=== PATIENT | male | born 1975 | race Two or more races ===

== ENCOUNTER 2025-07-25 16:33 | Inpatient (IN) | payer MEDICARE, MEDICAID ==
[~2025-07-25] VITALS: Ht 185.4 cm; Wt 149.0 kg
--- NOTE | 2025-07-25 16:52 | ELECTROCARDIOGRAPH REPORT ---
[facility] Test Date: 2025-07-25 Test Time: 16:37:17 Pat Name: ALVINA BANERJEE Department: EMERGENCY ROOM Room: [place] [address] Gender: M Operations [place]: YOMI : 1975 Requested By: HANH RODRIGUEZ Order Number: [id number] Reading MD: Dr. Stalin Askew Measurements Intervals [place] Rate: 100 P: 22 DC: 154 QRS: 27 QRSD: 93 T: -64 QT: 343 QTc: 443 Interpretive Statements Sinus tachycardia Probable left atrial enlargement Left ventricular hypertrophy Probable inferior infarct, age indeterminate Electronically Signed On 07-31-2025 0:22:[address] Stalin Askew Please click the below link to view image of tracing.
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
[2025-07-25 17:14] LABS: CREATININE 1.47 MG/DL (0.60-1.10); MEAN PLATELET VOLUME 10.6 FL (7.4-10.4); RED CELL DISTRIBUTION WIDTH 14.6 % (11.5-14.5); TOTAL CARBON DIOXIDE 32.1 MMOL/L (24-32); eCRCL 70 ML/MIN; eGFR 51 ML/MIN
--- NOTE | 2025-07-25 17:14 | RADIOLOGY REPORT ---
CT CT STROKE ALERT INDICATION: Stroke Alert EXAM DATE: 07/25/2025 04:46 PM COMPARISON: None TECHNIQUE: CT of the head without intravenous contrast. RADIATION DOSE: CTDIvol: 66 mGy, DLP: 1204 mGy*cm FINDINGS: There is no intracranial hemorrhage. There is no extra-axial fluid, mass, mass effect or midline shift. The ventricles are midline and normal in size. Basilar cisterns are patent. Mild periventricular and subcortical white matter chronic microvascular ischemic changes. There is decreased attenuation /loss of rojas- white differentiation within left parietal cortical region. Old left fajardo radiata infarct. Old infarcts of the kristen. The paranasal sinuses and mastoids are well-pneumatized. Imaged portion of the orbits are unremarkable. IMPRESSION: Decreased attenuation /loss of rojas-white differentiation in the left parietal lobe could represent acute cerebrovascular ischemia. Recommend MRI brain to evaluate. No intracranial hemorrhage or mass effect. Mild chronic microvascular ischemic changes. Critical Result: Stroke Alert Findings discussed with Daniela Bergeron, at 07/25/2025 05:10 PM, and acknowledged receipt and understanding of the findings. ..
--- NOTE | 2025-07-25 17:17 | RADIOLOGY REPORT ---
CT CTA NECK/HEAD INDICATION: Stroke Alert TECHNIQUE: CT angiography along with MIP and MPR images were obtained of the [place] arteries. CT angiography along with MIP and MPR images were obtained of the cervical carotid and vertebral arteries. All CT scans at this facility use dose modulation, iterative reconstruction, and/or weight based dosing when appropriate to reduce radiation dose to as low as reasonably achievable. 3-D postprocessing was performed on a separate workstation under radiologist supervision. IV CONTRAST: 100 mL of low osmolar intravenous iodinated contrast material was administered. COMPARISON: None FINDINGS: ANTERIOR CIRCULATION: Distal internal carotid arteries including the petrous, cavernous, and supraclinoid segments are patent bilaterally. Possible infundibulum versus fusiform aneurysm versus small saccular aneurysm measuring 2-3 mm in the right supraclinoid carotid artery. Anterior cerebral arteries including the A1 and A2 segments are patent bilaterally. Anterior communicating artery patent without aneurysm formation. Middle cerebral arteries including the horizontal M1 and sylvian M2 are patent bilaterally. POSTERIOR CIRCULATION: Posterior cerebral arteries are patent bilaterally. Vertebral arteries are codominant The intracranial segments of the vertebral arteries are patent bilaterally. 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 The posterior inferior cerebellar arteries are patent bilaterally. CERVICAL VESSELS: The thoracic aortic arch is patent without evidence of aneurysmal dilatation or dissection. The right common carotid artery, carotid bulb, and cervical segment of the right internal carotid artery are patent The left common carotid artery, carotid bulb, and cervical segment of the left internal carotid artery are patent The cervical segments of the vertebral arteries are patent Small amount of calcified plaque at bilateral proximal internal carotid arteries. OTHER: The lung apices are clear. Multiple dental cavities. IMPRESSION: 1. No large vessel occlusion. 2. 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 3. Right supraclinoid ICA infundibulum versus fusiform aneurysm versus small saccular aneurysm measuring 2-3 mm.
[2025-07-25 17:19] LABS: APTT 27 SECONDS (22-32); INR 1.0 INR
[2025-07-25] MEDS ORDERED: NO HOME MEDS (17:48)
--- NOTE | 2025-07-25 17:57 | [facility] CONSULT REPORT ---
[facility] Procedure Note [facility] Procedure Note Consult [facility] Note # Demographics Consult Type: Acute Stroke Level 2 (4.5-24 hrs) Patient Location: Emergency Room First Name: ALVINA Last Name: CHRISS Date of : 1975 Age: 49 Gender: Male Facility: [facility] Time of Initial Page (): 07/25/2025 17:12 First Contact with Site (): 07/25/2025 17:12 # HPI Chief Complaint: - vision changes History: 49yom with HTN who p/w L eye visual loss x 2 days. His R eye is fine. 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 Last Known Normal: - I have collected independent history specific to time last normal or last known well. We have collaborated with the provider and at this time, we have the most current timeline with the information that is available. 2 days ago # Scores Time of exam and NIHSS (): 07/25/2025 17:50 Level of Consciousness 1a: [0] = Alert; keenly responsive LOC Questions 1b: [0] = Answers both questions correctly LOC Commands 1c: [0] = Performs both tasks correctly Best Gaze 2: [0] = Normal Visual 3: [0] = No visual loss Facial Palsy 4: [0] = Normal symmetrical movements Motor Arm Left 5a: [0] = No drift Motor Arm Right 5b: [0] = No drift Motor Leg Left 6a: [0] = No drift Motor Leg Right 6b: [0] = No drift Limb Ataxia 7: [0] = Absent Sensory 8: [1] = Qjup-[id number] sensory loss Best Language 9: [0] = No aphasia Dysarthria 10: [0] = Normal Extinction and Inattention 11: [0] = No abnormality NIHSS Total: 1 # Data Head CT: - no bleed - per radiologist read L parietal stroke CTA Head: - no large vessel occlusion - per radiologist read # Assessment Impression: - Ischemic Stroke (Acute) # Plan Thrombolytic/Intervention: NOT IV Thrombolysis or IA Intervention candidate Thrombolytic Exclusion: > 4.5 hours Intraarterial Exclusion: - clinical exam not consistent with presence of large vessel occlusion (LVO), can reconsider if LVO found on vascular imaging Blood Pressure Management: Use labetolol 10-20mg IV PRN or nicardipine gtt to maintain BP parameters Target Blood Pressure: - SBP < 220 - DBP < 120 Imaging: (urgency: STAT): - CT Angiogram Head and CT Angiogram Neck AND call back with results if abnormal Imaging: (urgency: routine): - MRI Brain without contrast Diagnostic Test: - echo with bubble study Telemetry for a fib monitoring Therapy/Evaluation: - PT/OT evaluation - speech/swallow consultation - NPO until swallow evaluation Medication: - aspirin 81 mg PO daily atorvastatin 80mg daily, goal LDL <70 Other: - If patient has any neurological deterioration please call me back immediately Additional Recommendations: - Avoid dehydration and relative hypotension - Risk factor modification, including smoking cessation and alcohol moderation if appropriate - NSGY followup for aneurysms on CTA - Monitor glucose and correct as needed - If cryptogenic non-lacunar stroke on MRI, obtain outpatient cardiac monitoring for a fib - Call back for neurological deterioration Disposition: admit # Logistics Attestation of consult completion: The patient is located at: [facility]. Facility staff participated in the visit. I performed this telemedicine visit from my offsite office utilizing interactive 2 way audio and visual telecommunication technology at the request of the onsite emergency room provider. Total time spent in telemedicine encounter: I spent 23 minutes reviewing clinical data and/or imaging, obtaining history, examining the patient, communicating with the onsite care team, and in preparation of this report. # Demographics First Name: ALVINA Last Name: CHRISS Facility: [facility] Neuro Consult Order placed for: Yes PENELOPE MARTINEZ MD Jul 25, 2025 17:57
[2025-07-25] MEDS: niCARDipine-NS 40mg/200ml IVPB 200 ML IV SCH (18:05)
--- NOTE | 2025-07-25 18:39 | RADIOLOGY REPORT ---
EXAM: DI CHEST,SINGLE VIEW HISTORY: Stroke Alert TECHNIQUE: 1 view of the chest COMPARISON: None FINDINGS/IMPRESSION: LUNGS: Low lung volumes, which cause crowding of the bronchovascular markings. Central pulmonary vascular congestion. Correlate for volume overload MEDIASTINUM: Mild cardiomegaly BONES: No acute osseous abnormality. OTHER: None.
[2025-07-25 19:05] LABS: CREATININE 1.37 MG/DL (0.60-1.10); TOTAL CARBON DIOXIDE 29.9 MMOL/L (24-32); eCRCL 75 ML/MIN; eGFR 56 ML/MIN
[2025-07-25] MEDS ORDERED: potassium Cl 40MEQ/1/2NS 520ml 520 ML IV PRN (19:55)
[2025-07-25] MEDS ORDERED: magnesium sulf-water 4G/100mL 100 ML IV PRN (19:55)
[2025-07-25] MEDS ORDERED: magnesium hydroxide 30ml (MOM) UD suspension PO PRN (19:55)
[2025-07-25] MEDS ORDERED: magnesium sulf-water 2g/50mL 50 ML IV PRN (19:55)
[2025-07-25] MEDS ORDERED: ondansetron/PF 4mg/2ml inj IV PRN (19:55)
[2025-07-25] MEDS ORDERED: magnesium Cl slow-release 64mg tablet PO PRN (19:55)
[2025-07-25] MEDS ORDERED: mag hydrox/Alum hydrox/simeth 30ml oral suspension PO PRN (19:55)
[2025-07-25] MEDS ORDERED: potassium Cl 20 mEq SR tablet PO PRN (19:55)
[2025-07-25] MEDS: K and/or MAG REPLACEMENT MC SCH (20:00)
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
[2025-07-25 21:01] LABS: PHOSPHORUS 2.9 MG/DL (2.3-4.5); PRO BRAIN NATRIURETIC PEPTIDE 305 PG/ML (0-125)
[2025-07-25] MEDS: PERFLUTREN PROTEIN-A MICROSPHR (Optison) 0.22 MG/ML 3ML VIAL IV ONE (21:04)
[2025-07-25] MEDS: heparin, porcine 5000 units/ml vial SQ SCH (21:08)
[2025-07-25] MEDS: docusate sod 100mg capsule PO SCH (21:08)
[2025-07-26 02:37] LABS: LEUKOCYTE ESTERASE ,URINE NEGATIVE (Neg); OCCULT BLOOD,URINE TRACE-INTACT (Neg)
[2025-07-26 02:39] LABS: CREATININE,URINE RANDOM 188.0 MG/DL
[2025-07-26 02:43] LABS: NITRITES, URINE NEGATIVE (Neg)
[2025-07-26 02:44] LABS: SQUAMOUS EPITHELIAL CELL,UR NONE SEEN /LPF (FEW); UA COLLECTION TYPE NON-SPECIFIED
[2025-07-26 02:45] LABS: URINE AMPHETAMINE SCREEN NEGATIVE (Neg); URINE BARBITUATE SCREEN NEGATIVE (Neg); URINE BENZODIAZEPINES SCREEN NEGATIVE (Neg); URINE CANNABINOID SCREEN NEGATIVE (Neg); URINE COCAINE SCREEN NEGATIVE (Neg); URINE METHADONE SCREEN NEGATIVE (Neg); URINE OPIATE SCREEN NEGATIVE (Neg); URINE PHENCYCLIDINE SCREEN NEGATIVE (Neg)
[2025-07-26 02:48] LABS: OSMOLALITY UA 694.0 MOSM/K (50-1400)
[2025-07-26 02:57] LABS: MEAN PLATELET VOLUME 10.4 FL (7.4-10.4); RED CELL DISTRIBUTION WIDTH 14.7 % (11.5-14.5)
[2025-07-26 03:41] LABS: CHOL/HDL RATIO 6.4 (0.00-4.99); CREATININE 1.20 MG/DL (0.60-1.10); LDL CHOLESTEROL 163 MG/DL (50-100); TOTAL CARBON DIOXIDE 27.7 MMOL/L (24-32); eCRCL 86 ML/MIN; eGFR 65 ML/MIN
[2025-07-26] MEDS: HYDROcodone/acetaminophen 5mg/325mg tablet PO PRN (07:27)
[2025-07-26] MEDS ORDERED: labetalol 20mg/4ml (5mg/ml) syringe IV PRN (07:55)
[2025-07-26] MEDS: potassium Cl 20 mEq SR tablet PO PRN (09:18)
[2025-07-26] MEDS: niCARDipine-NS 40mg/200ml IVPB 200 ML IV SCH ×4 (09:27→16:07)
--- NOTE | 2025-07-26 14:09 | CARDIOLOGY REPORT ---
APPROVED REPORT EXAM: Comprehensive 2D, Doppler, and color-flow Echocardiogram. 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 127.2 cm/s AoV VTI 20.1 cm AO Peak GR. 6.5 mmHg AO Mean GR. 3 mmHg LVOT VTI 19.81 cm LVOT Peak Cliff. 97.6 cm/s ARTEMIO(VTI)/BSA 3.57 cm2/m2 ARTEMIO (VTI) 3.57 cm2 AV DI 0.98 % Mitral Valve MV E Velocity 68.4 cm/s MV Peak Gr. 3 mmHg MV DECEL TIME 260 ms MV A Velocity 99.6 cm/s MV PHT 56 ms E/A Ratio 0.7 MVA (PHT) 3.93 cm2 MV VMax 88.1 cm/s LEFT VENTRICLE Normal appearing LV size and wall thickness. Overall systolic function is normal. Overall LVEF is 55-60%. RIGHT VENTRICLE RV appears normal in size and function. TDS ATRIA Left atrium is mildly dilated. TDS AORTIC VALVE Probabale trileaflet AV appears sclerotic without obvious stenosis. No insufficiency by color and spectral flow Doppler. TDS MITRAL VALVE Mild MV annular calcification without obvious stenosis. Trace regurgitation by color and spectral flow Doppler. TDS TRICUSPID VALVE TV appears structurally normal with trace regurgitation by color and spectral flow Doppler. PULMONIC VALVE Pulmonic valve is not well visualized. TDS GREAT VESSELS Aortic root is not well visualized. TDS PERICARDIUM Normal pericardium. No effusion. Other Information Study Quality: Technically Difficult due to poor imaging windows, and body habitus (unable to perform bubble study) Conclusion Overall LVEF is 55-60%. Normal appearing LV size and wall thickness. Overall systolic function is normal. RV appears normal in size and function. TDS Probabale trileaflet AV appears sclerotic without obvious stenosis. No insufficiency by color and spectral flow Doppler. TDS Mild MV annular calcification without obvious stenosis. Trace regurgitation by color and spectral flow Doppler. TDS TV appears structurally normal with trace regurgitation by color and spectral flow Doppler. Pulmonic valve is not well visualized. TDS Normal pericardium. No effusion.
--- NOTE | 2025-07-26 18:49 | PROGRESS NOTE ---
Daily Progress Note Providers to CC ~ Antibiotic Timeout Antibiotic Ordered?: No Subjective The patient is chest pain-free and is resting comfortably in bed, currently I have his blood pressure dialed in and have kept it today anywhere between 140- 180. Objective Vital Signs Date Time Temp Pulse Resp B/P (MAP) Pulse Ox O2 Delivery O2 Flow Rate FiO2 07/26/25 17:54 64 16 162/75 (104) 98 0 07/26/25 00:33 98.6 Result Diagram: 07/26/252 07/26/25231 Gen. No acute distress alert and oriented 4 Lungs clear to ascultation bilaterally, no wheezes rales or rhonchi appreciated Heart normal sinus rhythm no murmurs rubs or clicks noted Abdomen soft nontender bowel sounds are normoactive Lower extremities no clubbing cyanosis, nor edema appreciated bilaterally Coagulation Studies Laboratory Tests Test 07/25/25 16:53 Prothrombin Time 10.0 SECONDS (9.0-12.0) INR International Normalized Ratio 1.0 INR Activated Partial Thromboplast Time 27 SECONDS (22-32) Coagulation Comments Problem\Assessment\Plan Problems/Diagnosis: (1) Hypertensive emergency # hypertensive emergency # 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 # Right supraclinoid ICA infundibulum versus fusiform aneurysm versus small saccular aneurysm measuring 2-[address] Sherman tele neurologist recommended keeping the systolic blood pressure less than 220 and diastolic less than 120 however in light of the cerebral aneurysm of the basilar tip a 4 mm I discussed the case with Dr. Del Valle neurosurgeon who assessed that the patient did not emergently need a intervention and recommended keeping the patient's systolic blood pressure ideally between 140-160 however upwards of 180 is acceptable. I has been checking the patient's blood pressure every hour and titrating the nicardipine drip anywhere between 2.5-5 mg and have majority of the blood pressure readings in the 140s to 160s however occasionally the blood pressure readings are in 170s. I has been checking personally as well as the ED RN has been paged me hourly with a blood pressure readings 81 mg aspirin daily I will speak to the on-call resident to monitor the blood pressure hourly and I will speak then to the ER to make sure that the residents are paged on the hour with a blood pressure readings # hyperlipidemia Triglycerides 364 Total cholesterol of 248 with a LDL of 163 and HDL of 39 On 80 mg of atorvastatin Discuss this with Dr. Marcia Dooley screening tech's who agrees with the statin dose and recommended not treating the triglycerides at this juncture. # elevated high sensitivity troponins with ST-depression on EKG # isolated episode of chest pain with shortness of breath Likely type 2 mi due to hypertensive emergency as well as elevated troponin could be secondary to acute CVA I reviewed the case with Dr. Susanna Dooley on-call screening tech's who recommended treating the acute issues including CVA and hypertensive emergency and that is the if the patient needs a cardiac intervention this could occur at a later date also due the patient is hypertensive emergency. Due to these above findings no anticoagulation was recommended however to continue the 81 mg aspirin. # hypokalemia On potassium replacement protocol A total of 2 hours and 45 minutes of critical care time was spent managing this patient Date of Service: Jul 26, 2025 Billing Provider: TAMMY MARK DO Common Visit Codes: [id number] CARE 30-74 MIN, [id number] CARE-EACH +30MIN (bill [id number] x 2) TAMMY MARK DO Jul 26, 2025 18:49
[2025-07-26 23:00] VITALS: BP 180/112; PULSE 69
[2025-07-27] VITALS (24 sets, daily range): BP systolic 128–179; BP diastolic 68–112; PULSE 58–98; RESP 12–20; TEMP 97.7–98.6; O2SAT 94–98
[2025-07-27] MEDS: niCARDipine-NS 40mg/200ml IVPB 200 ML IV SCH (01:31)
[2025-07-27 06:44] LABS: MEAN PLATELET VOLUME 9.5 FL (7.4-10.4); RED CELL DISTRIBUTION WIDTH 14.4 % (11.5-14.5)
[2025-07-27 07:04] LABS: CREATININE 0.95 MG/DL (0.60-1.10); TOTAL CARBON DIOXIDE 26.8 MMOL/L (24-32); eCRCL 109 ML/MIN; eGFR 85 ML/MIN
--- NOTE | 2025-07-27 20:59 | PROGRESS NOTE ---
Daily Progress Note Providers to CC ~ Antibiotic Timeout Antibiotic Ordered?: No Subjective The patient is resting comfortably in bed has been monitoring the patient's blood pressure every hour and a adjusting the nicardipine drip accordingly the patient is blood pressure has been in the goal range all but two readings today in the majority of the patient's blood pressure readings were in the 140s systolic to 150 systolic. Objective Vital Signs Date Time Temp Pulse Resp B/P (MAP) Pulse Ox O2 Delivery O2 Flow Rate FiO2 07/27/25 17:03 169/82 07/27/25 17:01 14 07/27/25 17:00 90 07/27/25 15:00 98.3 98 07/27/25 08:00 Room Air 2.0 Result Diagram: 07/27/25 0603 07/27/25 0603 Gen. No acute distress alert and oriented 4 Lungs clear to ascultation bilaterally, no wheezes rales or rhonchi appreciated Heart normal sinus rhythm no murmurs rubs or clicks noted Abdomen soft nontender bowel sounds are normoactive Lower extremities no clubbing cyanosis, nor edema appreciated bilaterally Coagulation Studies Laboratory Tests Test 07/25/25 16:53 Prothrombin Time 10.0 SECONDS (9.0-12.0) INR International Normalized Ratio 1.0 INR Activated Partial Thromboplast Time 27 SECONDS (22-32) Coagulation Comments Problem\Assessment\Plan Problems/Diagnosis: (1) Hypertensive emergency # hypertensive emergency # 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 # Right supraclinoid ICA infundibulum versus fusiform aneurysm versus small saccular aneurysm measuring 2-[address] Sherman tele neurologist recommended keeping the systolic blood pressure less than 220 and diastolic less than 120 however in light of the cerebral aneurysm of the basilar tip a 4 mm I discussed the case with Dr. Del Valle neurosurgeon who assessed that the patient did not emergently need a intervention and recommended keeping the patient's systolic blood pressure ideally between 140-160 however upwards of 180 is acceptable. I has been checking the patient's blood pressure every hour and titrating the nicardipine drip anywhere between 2.5-5 mg and have majority of the blood pressure readings in the 140s to 160s however occasionally the blood pressure readings are in 170s. I has been checking personally as well as the ED RN has been paged me hourly with a blood pressure readings 81 mg aspirin daily I will speak to the on-call resident to monitor the blood pressure hourly and I will speak then to the ER to make sure that the residents are paged on the hour with a blood pressure readings 07/27 I continue to monitor the patient's blood pressure every hour and the patient is with the above blood pressure goal range for all but two readings today and I adjusted the nicardipine drip 5 times today # hyperlipidemia Triglycerides 364 Total cholesterol of 248 with a LDL of 163 and HDL of 39 On 80 mg of atorvastatin Discuss this with Dr. Marcia Dooley l tacker's who agrees with the statin dose and recommended not treating the triglycerides at this juncture. # elevated high sensitivity troponins with ST-depression on EKG # isolated episode of chest pain with shortness of breath Likely type 2 mi due to hypertensive emergency as well as elevated troponin could be secondary to acute CVA I reviewed the case with Dr. Susanna Dooley on-call l tacker's who recommended treating the acute issues including CVA and hypertensive emergency and that is the if the patient needs a cardiac intervention this could occur at a later date also due the patient is hypertensive emergency. Due to these above findings no anticoagulation was recommended however to continue the 81 mg aspirin. # hypokalemia On potassium replacement protocol A total of 2 hours and 45 minutes of critical care time was spent managing this patient on 07/26/2025 I spent 45 minutes of critical care time managing the patient has a blood pressure and a adjusted the nicardipine drip on 07/27/2025 Date of Service: Jul 27, 2025 Billing Provider: TAMMY MARK DO Common Visit Codes: [id number] CARE 30-74 MIN TAMMY MARK DO Jul 27, 2025 20:59
[2025-07-28] VITALS (38 sets, daily range): BP systolic 102–197; BP diastolic 59–114; PULSE 58–84; RESP 9–28; TEMP 97–98.6; O2SAT 94–98
[2025-07-28] MEDS: HYDROcodone/acetaminophen 10/325mg tab PO PRN (03:45)
[2025-07-28 06:21] LABS: MEAN PLATELET VOLUME 9.6 FL (7.4-10.4); RED CELL DISTRIBUTION WIDTH 14.3 % (11.5-14.5)
[2025-07-28 06:45] LABS: CREATININE 1.26 MG/DL (0.60-1.10); TOTAL CARBON DIOXIDE 27.1 MMOL/L (24-32); eCRCL 82 ML/MIN; eGFR 61 ML/MIN
[2025-07-28] MEDS: NIFEdipine XL 30mg tablet PO SCH (09:15)
[2025-07-28] MEDS ORDERED: niCARDipine-NS 40mg/200ml IVPB 200 ML IV SCH (09:25)
--- NOTE | 2025-07-28 18:21 | PROGRESS NOTE ---
Daily Progress Note Providers to CC ~ Antibiotic Timeout Antibiotic Ordered?: No Subjective Has been able to titrate the patient off of the nicardipine drip and the patient is started on nifedipine extended release 90 mg this morning along with a continuing metoprolol tartrate 25 mg b.i.d. and added lisinopril 40 mg. The patient's systolic blood pressure has been in the 100s to 120s- however at 5:57 p.m. the patient's blood pressure went up to 147/91. I am adding 25 mg of hydrochlorothiazide this evening in ordering a renal ultrasound to evaluate for renal artery stenosis. Objective Vital Signs Date Time Temp Pulse Resp B/P (MAP) Pulse Ox O2 Delivery O2 Flow Rate FiO2 07/28/25 17:57 147/91 (109) 07/28/25 09:16 63 07/28/25 05:00 11 07/28/25 02:34 97.0 98 Room Air 07/28/25 02:00 0.0 Result Diagram: 07/28/25 0540 07/28/25 0546 Gen. No acute distress alert and oriented 4 Lungs clear to ascultation bilaterally, no wheezes rales or rhonchi appreciated Heart normal sinus rhythm no murmurs rubs or clicks noted Abdomen soft nontender bowel sounds are normoactive Lower extremities no clubbing cyanosis, nor edema appreciated bilaterally Coagulation Studies Laboratory Tests Test 07/25/25 16:53 Prothrombin Time 10.0 SECONDS (9.0-12.0) INR International Normalized Ratio 1.0 INR Activated Partial Thromboplast Time 27 SECONDS (22-32) Coagulation Comments Problem\Assessment\Plan Problems/Diagnosis: (1) Hypertensive emergency # hypertensive emergency # 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 # Right supraclinoid ICA infundibulum versus fusiform aneurysm versus small saccular aneurysm measuring 2-[address] Sherman tele neurologist recommended keeping the systolic blood pressure less than 220 and diastolic less than 120 however in light of the cerebral aneurysm of the basilar tip a 4 mm I discussed the case with Dr. Del Valle neurosurgeon who assessed that the patient did not emergently need a intervention and recommended keeping the patient's systolic blood pressure ideally between 140-160 however upwards of 180 is acceptable. I has been checking the patient's blood pressure every hour and titrating the nicardipine drip anywhere between 2.5-5 mg and have majority of the blood pressure readings in the 140s to 160s however occasionally the blood pressure readings are in 170s. I has been checking personally as well as the ED RN has been paged me hourly with a blood pressure readings 81 mg aspirin daily I will speak to the on-call resident to monitor the blood pressure hourly and I will speak then to the ER to make sure that the residents are paged on the hour with a blood pressure readings 07/27 I continue to monitor the patient's blood pressure every hour and the patient is with the above blood pressure goal range for all but two readings today and I adjusted the nicardipine drip 5 times today 07/28 nicardipine drip was titrated off after lisinopril 40 mg in the morning and nifedipine extended release 90 mg the patient is blood pressure did start elevating at 1757- to 147/91 I am adding a nighttime dose of hydrochlorothiazide 25 mg and ordered a arterial ultrasound to evaluate for renal artery stenosis. # hyperlipidemia Triglycerides 364 Total cholesterol of 248 with a LDL of 163 and HDL of 39 On 80 mg of atorvastatin Discuss this with Dr. Marcia Dooley studio control operator's who agrees with the statin dose and recommended not treating the triglycerides at this juncture. # elevated high sensitivity troponins with ST-depression on EKG # isolated episode of chest pain with shortness of breath Likely type 2 mi due to hypertensive emergency as well as elevated troponin could be secondary to acute CVA I reviewed the case with Dr. Susanna Dooley on-call studio control operator's who recommended treating the acute issues including CVA and hypertensive emergency and that is the if the patient needs a cardiac intervention this could occur at a later date also due the patient is hypertensive emergency. Due to these above findings no anticoagulation was recommended however to continue the 81 mg aspirin. # hypokalemia On potassium replacement protocol A total of 2 hours and 45 minutes of critical care time was spent managing this patient on 07/26/2025 I spent 45 minutes of critical care time managing the patient has a blood pressure and a adjusted the nicardipine drip on 07/27/2025 Date of Service: Jul 28, 2025 Billing Provider: TAMMY MARK DO Common Visit Codes: [id number] INP/OBS CARE(HIGH) TAMMY MARK DO Jul 28, 2025 18:21
[2025-07-29 02:00] VITALS: BP 120/68; PULSE 60; RESP 12; TEMP 97.6; O2SAT 99
[2025-07-29 06:00] VITALS: BP 119/82; PULSE 57; RESP 11; TEMP 97.9; O2SAT 97
[2025-07-29 07:07] LABS: MEAN PLATELET VOLUME 9.8 FL (7.4-10.4); RED CELL DISTRIBUTION WIDTH 14.5 % (11.5-14.5)
[2025-07-29 07:22] LABS: CREATININE 1.36 MG/DL (0.60-1.10); TOTAL CARBON DIOXIDE 27.7 MMOL/L (24-32); eCRCL 76 ML/MIN; eGFR 56 ML/MIN
[2025-07-29 08:00] VITALS: BP_SYST 138; BP_SYST 146; BP_DIAS 76; BP_DIAS 93; BP_DIAS 94; PULSE 68; PULSE 70; PULSE 76; PULSE 78; RESP 18; O2SAT 97
--- NOTE | 2025-07-29 09:56 | VASCULAR REPORT ---
[facility] V[facility] [address] [place] [address] [email or web address] L[facility] ASCULAR ING Name : ALVINA BANERJEE Date : 07/29/2025 [facility] Birthdate : 1975 Sex : M Age : 49Y Apartment Leasing Specialist : Chas Arizmendi RVT Referring Dr. : DEEDEE MUNOZ Preliminary Report The above named patient was referred for a NON-INVASIVE RENAL ARTERY EVALUATION. The evaluation includes grayscale imaging, color flow Doppler and spectral analysis of the abdominal aorta and renal arteries, as well as renal parenchymal flow analysis. Patient IN-PATIENT RisR rtetbrs Hypertension Obesity Renal Artery Doppler Right Renal Artery Left Renal Artery Proximal Proximal 99.2/18.5 cm/sec Mid Mid 100.5/33.9 cm/sec Distal Distal 79.9/19.5 cm/sec Hilar 104.7/32.3 cm/sec Hilar 96.4/17.5 cm/sec Resistive Index 0.65 Resistive Index 0.64 Renal Measurements Right Left Kidney Size 11.55 cm 7.09 cm Kidney Size 12.86 cm 7.37 cm Interlobar Artery 31.70/10.90 cm/s Interlobar Artery 37.30/13.60 cm/s Impression: Nondiagnostic study due to not able to visualize aorta in right renal artery. Technically difficult exam due to patient's body habitus. Bilateral resistive index are normal. Kidneys appear well perfused.
[2025-07-29 10:00] VITALS: BP 149/93; PULSE 65
[2025-07-29] MEDS ORDERED: ATOR-2 PO (10:59)
[2025-07-29] MEDS ORDERED: NIFE90TA61 PO (10:59)
[2025-07-29] MEDS ORDERED: LOP25T PO (10:59)
[2025-07-29] MEDS ORDERED: HYDR25TA4 PO (10:59)
[2025-07-29] MEDS ORDERED: ASPI81TA53 PO (10:59)
[2025-07-29] MEDS ORDERED: LISI40TA20 PO (10:59)
[2025-07-29 11:00] VITALS: BP 118/59; PULSE 85; RESP 18; TEMP 97.8; O2SAT 97
[2025-07-29 13:00] VITALS: BP 138/96; PULSE 78
--- NOTE | 2025-07-29 19:31 | DISCHARGE SUMMARY ---
Discharge Summary Providers to CC ~ Discharge Summary Admission Diagnosis: STROKE, HYPERTENSIVE EMERGENCY Hospital Course DATE OF ADMISSION: 07/25/2025 DATE OF DISCHARGE: 07/29/2025 Discharge Diagnosis\\Comment: Hypertensive emergency Acute CVA of the left parietal lobe Basilar tip aneurysm measuring 4 mm Right supraclinoid ICA infundibulum versus fusiform aneurysm versus small saccular aneurysm measuring 2-3 mm. Hyperlipidemia NSTEMI secondary to hypertensive emergency. Hypokalemia Operations\\Procedures: None Consultants: Dr. Jorgito Dooley phone consultation Dr Shell Sherman Telemedicine neurology Complications: None Condition on DC: Stable New Medications: Aspirin (Children's Aspirin) 81 Mg Tab.chew 81 MG PO DAILY@0830, #30 TAB.CHEW 1 Refill Atorvastatin Calcium (Atorvastatin Calcium) 80 Mg Tablet 1 TAB PO DAILY for 30 Days, #30 TAB 1 Refill Hydrochlorothiazide (Hydrochlorothiazide) 25 Mg Tablet 25 MG PO QPM, #30 TAB 1 Refill Lisinopril* (Lisinopril*) 40 Mg Tablet 1 TAB PO DAILY for 30 Days, #30 TAB 1 Refill Metoprolol Tartrate* (Lopressor tablet*) 25 Mg Tablet 25 MG PO Q12H, #60 TAB 1 Refill Hold for SBP below 100mm Hg Hold for Heart Rate below 60. Nifedipine ER* (Nifedipine ER*) 90 Mg Tab.er2.24 1 TAB PO DAILY for 30 Days, #30 TAB Discontinued Medications: Home Med List (No Home Medications) Each Discharge Summary: The patient is admitted by resident physician DANNY Vela , under the supervision of MILYE Membreno MD with the following HPI:"49-year-old male with history of hypertension came to the ER with complaints of loss of peripheral vision in left eye. He states that it suddenly started when he was driving 3 days ago. He had a mild headache on that day. He made an appointment with the senior engineering specialist and went to see him today, and was recommended to come to the ER for concern of stroke. He denies slurring of speech, weakness, motor deficit, sensory deficit, dizziness, syncope. He has history of uncontrolled hypertension and does not take any medications. He denies previous history of stroke. He reports having occasional palpitations. He is not on blood thinners. 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 Right supraclinoid ICA infundibulum versus fusiform aneurysm versus small saccular aneurysm measuring 2-[address] Whit cantrell neurologist recommended keeping the systolic blood pressure less than 220 and diastolic less than 120 however in light of the cerebral aneurysm of the basilar tip a 4 mm I discussed the case with Dr. Del Valle neurosurgeon who assessed that the patient did not emergently need a intervention and recommended keeping the patient's systolic blood pressure ideally between 140-160 however upwards of 180 is acceptable. I watched the patient's blood pressure closely on a nicardipine drip and the patient with the majority of the time on a nicardipine drip was on anywhere between 2.5-5 mg an hour in the majority of the blood pressure readings were between 140s 160s there was a a couple of readings that were greater than 180 and there was a reading that the systolic blood pressure was 110. The patient is transitioned to oral antihypertensive medications including nifedipine extended release 90 mg daily lisinopril 40 mg daily due to the NSTEMI the patient was on metoprolol tartrate during the entire hospitalization was 25 mg b.i.d. the patient also was started on hydrochlorothiazide 25 mg on the evening of the . The patient's systolic blood pressure was anywhere from 119 to 149 on the that is well controlled elevated high sensitivity troponins with ST-depression on EKG isolated episode of chest pain with shortness of breath Likely type 2 mi due to hypertensive emergency as well as elevated troponin could be secondary to acute CVA I reviewed the case with Dr. Susanna Dooley on-call fire tender's who recommended treating the acute issues including CVA and hypertensive emergency and that is the if the patient needs a cardiac intervention this could occur at a later date also due the patient is hypertensive emergency. Due to these above findings no anticoagulation was recommended however to continue the 81 mg aspirin. The patient was chest pain-free the entire hospitalization The patient has a hyperlipidemia with the following labs: Triglycerides 364 Total cholesterol of 248 with a LDL of 163 and HDL of 39 On 80 mg of atorvastatin Discuss this with Dr. Marcia Dooley fire tender's who agrees with the statin dose and recommended not treating the triglycerides at this juncture. Patient has a echocardiogram with a LVEF of 55-60% the majority of the echocardiogram documentation demonstrated that this was a technically difficult study due the patient's body habitus as the patient is obese. I advised the patient to get a blood pressure cuff and monitor his blood pressure twice a day in his same setting at rest and to bring in the blood pressure log to his primary care provider's office. The patient is to call the office of neurosurgeon for follow up on the cerebral aneurysm. Gen. No acute distress alert and oriented 4 Lungs clear to ascultation bilaterally, no wheezes rales or rhonchi appreciated Heart normal sinus rhythm no murmurs rubs or clicks noted Abdomen soft nontender bowel sounds are normoactive Lower extremities no clubbing cyanosis, nor edema appreciated bilaterally The patient felt ready to be discharged and was medically cleared to be discharged on 07/29/2025 The patient was seen and evaluated on day of discharge. Time spent on discharge 35 minutes *Problems/Diagnosis: (1) Hypertensive emergency Status: Acute Total Time Spent on D/C: > 30 Minutes Date of Service: Jul 29, 2025 Billing Provider: TAMMY MARK DO Common Visit Codes: [id number]/OBS DISCH DAY >30min TAMMY MARK DO Jul 29, 2025 19:30
== END 2025-07-29 14:43 | disposition home or self-care (01) | DRG 64 ==
LOC: ER 16:34 → ED HOLD 19:55 → EDBEDREQ 07-26 03:24 → PCU 3S 07-26 22:39
PROVIDERS: ADMIT Internal Medicine; ATTEND Family Medicine
PROC: B3251ZZ Computerized Tomography (CT Scan) of Bilateral Common Carotid Arteries using Low Osmolar Contrast (ICD-10-PCS; principal; 2025-07-25)
PROC: B32G1ZZ Computerized Tomography (CT Scan) of Bilateral Vertebral Arteries using Low Osmolar Contrast (ICD-10-PCS; 2025-07-25)
PROC: B32R1ZZ Computerized Tomography (CT Scan) of Intracranial Arteries using Low Osmolar Contrast (ICD-10-PCS; 2025-07-25)
PROC: B3281ZZ Computerized Tomography (CT Scan) of Bilateral Internal Carotid Arteries using Low Osmolar Contrast (ICD-10-PCS; 2025-07-25)
DX: I63.9 Cerebral infarction, unspecified (principal); I21.A1 Myocardial infarction type 2; I16.1 Hypertensive emergency; H35.039 Hypertensive retinopathy, unspecified eye; I67.1 Cerebral aneurysm, nonruptured; I67.82 Cerebral ischemia; E87.6 Hypokalemia; R29.701 NIHSS score 1; E78.5 Hyperlipidemia, unspecified; I10 Essential (primary) hypertension; Z79.82 Long term (current) use of aspirin; Z79.899 Other long term (current) drug therapy
CPT/HCPCS: 36415; 70450; 70496; 70498; 71045; 80048; 80053; 80061; 80305; 81001; 82570; 82948; 83036; 83735; 83880; 83935; 84100; 84145; 84300; 84484; 85025; 85610; 85730; 87207; 92508; 92616; 93005; 93306; 93975; 97116; 97161; 97530; 99285; A4615; G0378; J1644; J3490; Q9967